=== PATIENT | female | born 1980 | race Caucasian/White ===

== ENCOUNTER 2018-11-09 20:24 | Emergency (ER) | payer MEDICAID ==
[2018-11-09 20:37] VITALS: TEMP 98.5; BMI 23.8
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
[2018-11-09 22:25] VITALS: BP 124/71; PULSE 89; RESP 18; O2SAT 100
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
== END 2018-11-09 22:26 | disposition home or self-care (01) ==
LOC: ED 20:24
DX: S00.83XA Contusion of other part of head, initial encounter (principal); Y08.89XA Assault by other specified means, initial encounter